=== PATIENT | male | born 1960 | race Caucasian/White ===

== ENCOUNTER 2021-05-20 10:14 | Outpatient (CLI) | payer OTHER, SELFPAY ==
--- NOTE | ~2021-05-20 | XR_ITS ---
XR foot LT min 3V DATE: 05/20/2021 10:37 INDICATION: None pressure chronic ulcer, plantar area TECHNIQUE: 3 views COMPARISON: 10/04/2016 left foot FINDINGS: Since 10/04/2016 the remainder of the left first metatarsal bone has been resected and there is interval amputation of third and fourth metatarsals at mid to distal shaft and amputation of the fifth digit just beyond the base of the proximal phalanx. There is prior amputation at the midshaft of the left second metatarsal bone. No erosive change or bone destruction is noted. Mild plantar calcaneal enthesopathy Prominent anterior and posterior tibial and subdural patellas pedis artery calcifications are noted. IMPRESSION: Status post amputation of second metatarsal midshaft Interval amputation of the remainder of the first metatarsal bone and amputation at the mid distal sh afts of the third and fourth metatarsal bones and amputation of the fifth digit just beyond the base of the proximal phalanx No radiographic evidence of osteomyelitis is noted Arterial calcifications Mild plantar calcaneal enthesopathy Reviewed, dictated and finalized at location A. IMPRESSION: Status post amputation of second metatarsal midshaft Interval amputation of the remainder of the first metatarsal bone and amputatio n at the mid distal shafts of the third and fourth metatarsal bones and amputat ion of the fifth digit just beyond the base of the proximal phalanx No radiographic evidence of osteomyelitis is noted Arterial calcifications Mild plantar calcaneal enthesopathy
== END 2021-05-20 10:15 | disposition home or self-care (01) ==
LOC: CHSIMG 10:17
PROVIDERS: PCP Family Medicine; Visit Provider Podiatrist Foot & Ankle Surgery
DX: L97.522 Non-pressure chronic ulcer of other part of left foot with fat layer exposed (principal)
CPT/HCPCS: 73630

== ENCOUNTER 2021-07-29 12:16 | Outpatient (CLI) | payer OTHER, SELFPAY ==
[2021-07-29 12:42] LABS: Creatinine Urine 67.75 mg/dL (40-278); Total Protein Urine Random 137.1 mg/dL (0.0-11.9); Ur Ttl Prot Creatinine Ratio 2.02 mg/mg (0-0.20)
[2021-07-29 13:20] LABS: Albumin Level 2.9 g/dL (3.4-5.0); Anion Gap 7 mmol/L (8-16); Blood Urea Nitrogen 23 mg/dL (7-18); Carbon Dioxide 27 mmol/L (21-32); Chloride 103 mmol/L (98-108); Estimated Glomerular Filt Rate > 60; Glucose 219 mg/dL (70-99); Osmolality Calculated 294 mOsm/kg (285-295); Phosphorus 4.2 mg/dL (2.6-4.7); Potassium 4.6 mmol/L (3.5-5.1); Sodium 137 mmol/L (136-145)
== END 2021-07-29 12:17 | disposition home or self-care (01) ==
PROVIDERS: PCP Family Medicine; Visit Provider Internal Medicine
DX: R80.9 Proteinuria, unspecified (principal); R31.29 Other microscopic hematuria
CPT/HCPCS: 36415; 80069; 82570; 84156

== ENCOUNTER 2022-04-05 17:18 | Outpatient (CLI) | payer OTHER, SELFPAY ==
[2022-04-05 18:51] LABS: Anion Gap 5 mmol/L (8-16); Blood Urea Nitrogen 21 mg/dL (7-18); Carbon Dioxide 29 mmol/L (21-32); Chloride 105 mmol/L (98-108); Estimated Glomerular Filt Rate > 60; Glucose 170 mg/dL (70-99); NT Pro B Type Natriuretic Pept 1199 pg/mL (0-125); Osmolality Calculated 295 mOsm/kg (285-295); Sodium 139 mmol/L (136-145)
== END 2022-04-05 17:19 | disposition home or self-care (01) ==
PROVIDERS: PCP Family Medicine
DX: M79.89 Other specified soft tissue disorders (principal); I10 Essential (primary) hypertension
CPT/HCPCS: 36415; 80048; 83880

== ENCOUNTER 2022-04-18 12:23 | Outpatient (CLI) | payer OTHER, SELFPAY ==
[2022-04-18 12:58] LABS: Anion Gap 5 mmol/L (8-16); Blood Urea Nitrogen 25 mg/dL (7-18); Calcium 8.9 mg/dL (8.5-10.1); Carbon Dioxide 30 mmol/L (21-32); Chloride 103 mmol/L (98-108); Estimated Glomerular Filt Rate > 60; Glucose 176 mg/dL (70-99); Osmolality Calculated 294 mOsm/kg (285-295); Potassium 4.6 mmol/L (3.5-5.1); Sodium 138 mmol/L (136-145)
== END 2022-04-18 12:24 | disposition home or self-care (01) ==
LOC: CHSLAB 12:27
PROVIDERS: PCP Family Medicine
DX: I10 Essential (primary) hypertension (principal); M79.89 Other specified soft tissue disorders
CPT/HCPCS: 36415; 80048

== ENCOUNTER 2022-05-09 14:33 | Outpatient (CLI) | payer OTHER, SELFPAY ==
[2022-05-09 15:15] LABS: Basophils Absolute Auto 0.08 K/mm3 (0.00-0.10); Basophils Percent Auto 1.1 % (0.0-1.0); Eosinophils Absolute Auto 0.45 K/mm3 (0.02-0.50); Eosinophils Percent Auto 5.9 % (1.0-6.0); Hematocrit 39.1 % (40.0-54.0); Hemoglobin 12.6 g/dL (14.0-18.0); Immature Granulocyte Absolute 0.04 K/mm3 (0.00-0.00); Immature Granulocyte Percent A 0.5 % (0.0-0.0); Lymphocytes Absolute Auto 1.12 K/mm3 (1.10-4.50); Lymphocytes Percent Auto 14.7 % (18.0-42.0); Mean Corpuscular HGB Conc 32.2 g/dL (32.0-36.0); Mean Corpuscular Hemoglobin 27.2 pg (27.0-31.0); Mean Corpuscular Volume 84.3 fL (78.0-102.0); Mean Platelet Volume 10.6 fl (8.7-11.0); Monocytes Absolute Auto 0.61 K/mm3 (0.10-0.90); Neutrophils Absolute Auto 5.3 K/mm3 (1.7-7.2); Neutrophils Percent Auto 69.8 % (50.0-70.0); Platelet Count Result 209 K/mm3 (150-420); Red Blood Count 4.64 M/mm3 (4.70-6.10); Red Cell Distribution Width 14.4 % (11.6-14.4); White Blood Count 7.6 K/mm3 (4.8-10.8)
[2022-05-09 15:59] LABS: Alanine Aminotransferase 35 U/L (16-63); Alkaline Phosphatase 101 U/L (46-116); Anion Gap 7 mmol/L (8-16); Aspartate Amino Transferase 21 U/L (15-37); Bilirubin,Total 0.3 mg/dL (0.00-1.00); Blood Urea Nitrogen 23 mg/dL (7-18); Calcium 9.2 mg/dL (8.5-10.1); Carbon Dioxide 29 mmol/L (21-32); Chloride 101 mmol/L (98-108); Estimated Glomerular Filt Rate > 60; Glucose 211 mg/dL (70-99); Osmolality Calculated 293 mOsm/kg (285-295); Potassium 4.3 mmol/L (3.5-5.1); Sodium 137 mmol/L (136-145); Total Protein 6.3 g/dL (6.4-8.2)
== END 2022-05-09 14:34 | disposition home or self-care (01) ==
LOC: CHSLAB 14:35
PROVIDERS: PCP Family Medicine; Visit Provider Internal Medicine Hematology & Oncology
DX: C22.0 Liver cell carcinoma (principal)
CPT/HCPCS: 36415; 80053; 85025

== ENCOUNTER 2022-07-25 14:56 | Outpatient (CLI) | payer OTHER, SELFPAY ==
[2022-07-25 15:19] LABS: Basophils Absolute Auto 0.06 K/mm3 (0.00-0.10); Basophils Percent Auto 0.8 % (0.0-1.0); Eosinophils Absolute Auto 0.39 K/mm3 (0.02-0.50); Eosinophils Percent Auto 5.5 % (1.0-6.0); Hematocrit 37.8 % (40.0-54.0); Hemoglobin 12.1 g/dL (14.0-18.0); Immature Granulocyte Absolute 0.03 K/mm3 (0.00-0.00); Immature Granulocyte Percent A 0.4 % (0.0-0.0); Lymphocytes Absolute Auto 1.14 K/mm3 (1.10-4.50); Lymphocytes Percent Auto 16.1 % (18.0-42.0); Mean Corpuscular Hemoglobin 27.2 pg (27.0-31.0); Mean Corpuscular Volume 84.9 fL (78.0-102.0); Mean Platelet Volume 10.2 fl (8.7-11.0); Monocytes Percent Auto 8.5 % (2.0-11.0); Neutrophils Absolute Auto 4.9 K/mm3 (1.7-7.2); Neutrophils Percent Auto 68.7 % (50.0-70.0); Platelet Count Result 191 K/mm3 (150-420); Red Blood Count 4.45 M/mm3 (4.70-6.10); Red Cell Distribution Width 14.6 % (11.6-14.4); White Blood Count 7.1 K/mm3 (4.8-10.8)
[2022-07-25 15:24] LABS: Creatinine Urine 154.34 mg/dL (40-278); Total Protein Urine Random 168.5 mg/dL (0.0-11.9); Ur Ttl Prot Creatinine Ratio 1.09 mg/mg (0-0.20)
[2022-07-25 16:03] LABS: Alanine Aminotransferase 32 U/L (16-63); Albumin Level 3.1 g/dL (3.4-5.0); Alkaline Phosphatase 93 U/L (46-116); Anion Gap 7 mmol/L (8-16); Aspartate Amino Transferase 18 U/L (15-37); Bilirubin,Total 0.3 mg/dL (0.00-1.00); Blood Urea Nitrogen 26 mg/dL (7-18); Calcium 8.7 mg/dL (8.5-10.1); Carbon Dioxide 27 mmol/L (21-32); Chloride 103 mmol/L (98-108); Estimated Glomerular Filt Rate > 60; Glucose 176 mg/dL (70-99); Osmolality Calculated 292 mOsm/kg (285-295); Phosphorus 4.4 mg/dL (2.6-4.7); Potassium 4.5 mmol/L (3.5-5.1); Sodium 137 mmol/L (136-145); Total Protein 6.2 g/dL (6.4-8.2)
== END 2022-07-25 14:57 | disposition home or self-care (01) ==
LOC: CHSLAB 15:05
PROVIDERS: PCP Family Medicine
DX: R80.9 Proteinuria, unspecified (principal); C22.0 Liver cell carcinoma
CPT/HCPCS: 36415; 80053; 82570; 83036; 84100; 84156; 85025

== ENCOUNTER 2022-10-24 08:17 | Outpatient (CLI) | payer OTHER, SELFPAY ==
[2022-10-24 08:38] LABS: Basophils Absolute Auto 0.06 K/mm3 (0.00-0.10); Basophils Percent Auto 0.9 % (0.0-1.0); Eosinophils Absolute Auto 0.33 K/mm3 (0.02-0.50); Hematocrit 37.4 % (40.0-54.0); Hemoglobin 12.2 g/dL (14.0-18.0); Immature Granulocyte Absolute 0.03 K/mm3 (0.00-0.00); Immature Granulocyte Percent A 0.5 % (0.0-0.0); Lymphocytes Absolute Auto 1.13 K/mm3 (1.10-4.50); Lymphocytes Percent Auto 17.3 % (18.0-42.0); Mean Corpuscular HGB Conc 32.6 g/dL (32.0-36.0); Mean Corpuscular Hemoglobin 28.4 pg (27.0-31.0); Mean Corpuscular Volume 87.2 fL (78.0-102.0); Mean Platelet Volume 10.4 fl (8.7-11.0); Monocytes Absolute Auto 0.62 K/mm3 (0.10-0.90); Monocytes Percent Auto 9.5 % (2.0-11.0); Neutrophils Absolute Auto 4.4 K/mm3 (1.7-7.2); Neutrophils Percent Auto 66.8 % (50.0-70.0); Platelet Count Result 192 K/mm3 (150-420); Red Blood Count 4.29 M/mm3 (4.70-6.10); Red Cell Distribution Width 14.6 % (11.6-14.4); White Blood Count 6.6 K/mm3 (4.8-10.8)
[2022-10-24 09:00] LABS: Alanine Aminotransferase 19 U/L (16-63); Albumin Level 3.2 g/dL (3.4-5.0); Alkaline Phosphatase 93 U/L (46-116); Anion Gap 4 mmol/L (8-16); Aspartate Amino Transferase 20 U/L (15-37); Bilirubin,Total 0.3 mg/dL (0.00-1.00); Blood Urea Nitrogen 22 mg/dL (7-18); Calcium 9.3 mg/dL (8.5-10.1); Carbon Dioxide 31 mmol/L (21-32); Chloride 104 mmol/L (98-108); Estimated Glomerular Filt Rate > 60; Glucose 88 mg/dL (70-99); Osmolality Calculated 290 mOsm/kg (285-295); Potassium 5.1 mmol/L (3.5-5.1); Sodium 139 mmol/L (136-145); Total Protein 6.5 g/dL (6.4-8.2)
[2022-10-24 10:45] LABS: Immature Reticulocyte Fraction 19.1 % (2.0-16.52); Reticulocyte Hemoglobin Conten 30.7 pg (28.0-35.0); Reticulocyte Percent 2.01 % (0.50-1.50); Reticulocytes Absolute 0.09 M/mm3 (0.02-0.1)
[2022-10-24 12:07] LABS: Ferritin 110 ng/mL (26-388); Iron 52 ug/dL (65-175); Percent Iron Saturation 19 % (12-57)
== END 2022-10-24 08:18 | disposition home or self-care (01) ==
LOC: CHSLAB 08:22
PROVIDERS: PCP Family Medicine; Visit Provider Internal Medicine Hematology & Oncology
DX: C22.0 Liver cell carcinoma (principal); D64.9 Anemia, unspecified
CPT/HCPCS: 36415; 80053; 82728; 83540; 83550; 85025; 85046

== ENCOUNTER 2023-01-23 11:04 | Outpatient (CLI) | payer OTHER, SELFPAY ==
[2023-01-23 11:46] LABS: Appearance Urine Clear (Clear); Bilirubin Urine Negative (Negative); Blood Urine Trace-Intact (Negative); Color Urine Yellow (Yellow); Glucose Urine UA 3+ (Negative); Ketones Urine Negative (Negative); Leukocyte Esterase Ur Negative (Negative); Nitrate Urine Negative (Negative); Protein Urine 2+ (Negative); Urobilinogen Urine 0.2 mg/dL (0.2-1.0)
[2023-01-23 11:53] LABS: Add Urine Microscopic? YES; Bacteria Urine Trace /hpf; RBC Urine 0-2 /hpf (0-2); Squamous Epithelial Cell Urine Few /hpf (Few); WBC Urine None seen /hpf (0-3)
[2023-01-23 11:59] LABS: Creatinine Urine 102.65 mg/dL (40-278); Total Protein Urine Random 95.5 mg/dL (0.0-11.9); Ur Ttl Prot Creatinine Ratio 0.93 mg/mg (0-0.20)
[2023-01-23 12:08] LABS: Albumin Level 3.1 g/dL (3.4-5.0); Anion Gap 6 mmol/L (8-16); Blood Urea Nitrogen 24 mg/dL (7-18); Calcium 8.7 mg/dL (8.5-10.1); Carbon Dioxide 30 mmol/L (21-32); Chloride 102 mmol/L (98-108); Estimated Glomerular Filt Rate > 60; Glucose 181 mg/dL (70-99); Osmolality Calculated 295 mOsm/kg (285-295); Phosphorus 4.6 mg/dL (2.6-4.7); Potassium 5.2 mmol/L (3.5-5.1); Sodium 138 mmol/L (136-145)
== END 2023-01-23 11:05 | disposition home or self-care (01) ==
LOC: CHSLAB 11:08
PROVIDERS: PCP Family Medicine; Visit Provider Internal Medicine
DX: N18.2 Chronic kidney disease, stage 2 (mild) (principal)
CPT/HCPCS: 36415; 80069; 81001; 82570; 84156

== ENCOUNTER 2023-03-25 11:33 | Outpatient (CLI) | payer OTHER, SELFPAY ==
[2023-03-25 12:44] LABS: Anion Gap 9 mmol/L (8-16); Blood Urea Nitrogen 26 mg/dL (7-18); Calcium 8.6 mg/dL (8.5-10.1); Carbon Dioxide 28 mmol/L (21-32); Chloride 104 mmol/L (98-108); Estimated Glomerular Filt Rate > 60; Glucose 150 mg/dL (70-99); Osmolality Calculated 299 mOsm/kg (285-295); Potassium 4.8 mmol/L (3.5-5.1); Sodium 141 mmol/L (136-145)
== END 2023-03-25 11:34 | disposition home or self-care (01) ==
LOC: CHSLAB 11:36
PROVIDERS: PCP Family Medicine
DX: N18.2 Chronic kidney disease, stage 2 (mild) (principal); R80.9 Proteinuria, unspecified
CPT/HCPCS: 36415; 80048

== ENCOUNTER 2023-12-21 11:11 | Outpatient (CLI) | payer OTHER, SELFPAY ==
[2023-12-21 11:40] LABS: Hematocrit 34.1 % (40.0-54.0); Hemoglobin 10.9 g/dL (14.0-18.0); Mean Corpuscular Hemoglobin 29.1 pg (27.0-31.0); Mean Corpuscular Volume 91.2 fL (78.0-102.0); Mean Platelet Volume 10.2 fl (8.7-11.0); Platelet Count Result 176 K/mm3 (150-420); Red Blood Count 3.74 M/mm3 (4.70-6.10); Red Cell Distribution Width 14.7 % (11.6-14.4); White Blood Count 6.6 K/mm3 (4.8-10.8)
[2023-12-21 11:44] LABS: Add Urine Microscopic? YES; Appearance Urine Clear (Clear); Bilirubin Urine Negative (Negative); Blood Urine Negative (Negative); Color Urine Light Yellow (Yellow); Glucose Urine UA 3+ (Negative); Ketones Urine Negative (Negative); Leukocyte Esterase Ur Negative (Negative); Nitrate Urine Negative (Negative); Protein Urine Trace (Negative); Specific Grav Ur 1.015 (1.010-1.020); Urobilinogen Urine 0.2 mg/dL (0.2-1.0)
[2023-12-21 12:02] LABS: RBC Urine None seen /hpf (0-2); Squamous Epithelial Cell Urine Rare /hpf (Few); Total Protein Urine Random 21.4 mg/dL (0.0-11.9); Ur Ttl Prot Creatinine Ratio 0.44 mg/mg (0-0.20); WBC Urine None seen /hpf (0-3)
[2023-12-21 12:03] LABS: Bacteria Urine Trace /hpf
[2023-12-21 12:29] LABS: Albumin Level 3.4 g/dL (3.4-5.0); Anion Gap 7 mmol/L (4-12); Blood Urea Nitrogen 25 mg/dL (7-18); Calcium 9.2 mg/dL (8.5-10.1); Carbon Dioxide 30 mmol/L (21-32); Chloride 103 mmol/L (98-108); Estimated Glomerular Filt Rate 58; Glucose 176 mg/dL (70-99); Osmolality Calculated 298 mOsm/kg (285-295); Phosphorus 4.5 mg/dL (2.6-4.7); Potassium 4.8 mmol/L (3.5-5.1); Sodium 140 mmol/L (136-145)
[2023-12-22 17:18] LABS: Parathyroid Intact 36 pg/mL (16-77)
== END 2023-12-21 11:12 | disposition home or self-care (01) ==
PROVIDERS: PCP Family Medicine
DX: N18.30 Chronic kidney disease, stage 3 unspecified (principal); I12.9 Hypertensive chronic kidney disease with stage 1 through stage 4 chronic kidney disease, or unspecified chronic kidney disease
CPT/HCPCS: 36415; 80069; 81001; 82570; 83970; 84156; 85027

== ENCOUNTER 2024-09-14 11:09 | Outpatient (CLI) | payer OTHER, SELFPAY ==
--- OUTSIDE RECORDS SUMMARY | 2024-09-14 11:37 | XMS_ITS ---
Author Organization Unknown Address [address] [address] [phone] Phone Care Team Providers Care Abrasive Mixer Name Role Phone LUCAS ALY Attending Unavailable TOBIN Velazquez Primary Unavailable Immunization Immunization Date Status Additional Notes Code Code System influenza, unspecified formulation 12/28/2017 Completed 88 CVX Influenza, split virus, trivalent, preservative 11/23/2016 Completed 141 CVX Influenza, split virus, trivalent, preservative 03/24/2012 Completed 141 CVX Influenza, split virus, quadrivalent, PF 04/21/2019 Completed 150 CVX Influenza, split virus, quadrivalent, preservative 12/07/2017 Completed 158 C VX COVID-19, mRNA, LNP-S, PF, 3 0 mcg/0.3 mL dose 09/24/2020 Completed 208 CVX COVID-19, mRNA, LNP-S, PF, 3 0 mcg/0.3 mL dose 10/16/2020 Completed 208 CVX COVID-19, mRNA, LNP-S, PF, 3 0 mcg/0.3 mL dose, volodymyr-sucrose 03/19/2021 Completed 217 CVX Results US ECHO W/COLOR W/CONTRAST - Completed: 09/11/2023 15:16 LOINC: See Scanned Image Attachment for Report Dictated By: Trans Initials: BG Trans Date: 09/15/23 10:30 <<REPDIST>> Social History Type Status Start Date End Date Code Code Syst em Smoking History Former smoker 4597019 SNOMED CT Sex Male Medications Medication Start Date End Date Route Frequency Dose Code Code System Medication Instructions Home Meds Folic Acid 1MG Oral Tablet 10/07/2017 Unknown ORAL ONCE A DAY 1 MILLIGRAMS 781523 RxNorm TAKE 1 MILLIGRAMS ORAL ONCE A DAY Latanoprost 0.005% Ophthalmic Solution 10/07/2017 Unknown BOTH EYES AT BEDTIME 1 DROP 502859 RxNorm INSTILL IN 1 DROP BOTH EYES AT BEDTIME Lisinopril 40MG Oral Tablet 10/07/2017 Unknown ORAL ONCE A DAY 40 MILLIGRAMS 023419 RxNorm TAKE 40 MILLIGRAMS ORAL ONCE A DAY Timolol Maleate 0.5% Ophthalmic Solution 10/07/2017 Unknown BOTH EYES EVERY 12 HOURS 1 DROP 0088638 RxNorm INSTILL IN 1 DROP BOTH EYES EVERY 12 HOURS Vitamin B1 100MG Oral Tablet 10/07/2017 Unknown ORAL ONCE A DAY 100 MILLIGRAMS 300962 RxNorm TAKE 100 MILLIGRAMS ORAL ONCE A DAY glipiZIDE 10MG Oral Tablet 10/07/2017 Unknown ORAL TWICE A DAY WITH MEALS 10 MILLIGRAMS 961321 RxNorm TAKE 10 MILLIGRAMS ORAL TWICE A DAY WITH MEALS Brimonidine Tartrate 0.2% Ophthalmic Solution 10/07/2017 Unknown BOTH EYES TWICE A DAY 1 DROP 580949 RxNorm INSTILL IN 1 DROP BOTH EYES TWICE A DAY hydroCHLORO thiazide 12.5MG Oral Tablet 10/07/2017 Unknown ORAL ONCE A DAY 12.5 MILLIGRAMS 834428 RxNorm TAKE 12.5 MILLIGRAMS ORAL ONCE A DAY metFORMIN HCl 1000MG Oral Tablet 10/07/2017 Unknown ORAL TWICE A DAY WITH MEALS 1000 MILLIGRAMS 761775 RxNorm TAKE 1000 MILLIGRAMS ORAL TWICE A DAY WITH MEALS Zetia 10MG Oral Tablet 10/05/2020 Unknown ORAL ONCE A DAY 10 MILLIGRAMS 852606 RxNorm TAKE 10 MILLIGRAMS ORAL ONCE A DAY Admelog SoloStar Pen 100U/1ML Injection Solution 10/05/2020 Unknown INJECTIO N BEFORE LARGEST MEAL 14 UNITS [id number] RxNorm 14 UNITS INJECTION BEFORE LARGEST MEAL Aspirin 81MG Oral Tablet, Chewable 10/05/2020 Unknown ORAL ONCE A DAY 81 MILLIGRAMS 826744 RxNorm TAKE 81 MILLIGRAMS ORAL ONCE A DAY Basaglar KwikPen 100U/1ML Subcutaneou s Solution 10/05/2020 Unknown SUBCUTAN EOUS DIRECTED 1 unit(s) 8093564 RxNorm INJECT INTO 1 EACH SUBCUTANEOUS DIRECTED Docusate Sodium 100MG Oral Capsule, Liquid Filled 10/05/2020 Unknown ORAL TWICE A DAY 100 MILLIGRAMS [id number] RxNorm TAKE 100 MILLIGRAMS ORAL TWICE A DAY Ferrous Sulfate 325MG Oral Tablet 10/05/2020 Unknown ORAL TWICE A DAY 325 MILLIGRAMS 861544 RxNorm TAKE 325 MILLIGRAMS ORAL TWICE A DAY Gabapentin 100MG Oral Capsule 10/05/2020 Unknown ORAL THREE TIMES A DAY 100 MILLIGRAMS 232976 RxNorm TAKE 100 MILLIGRAMS ORAL THREE TIMES A DAY Lipitor 80MG Oral Tablet 10/05/2020 Unknown ORAL ONCE A DAY 80 MILLIGRAMS 918565 RxNorm TAKE 80 MILLIGRAMS ORAL ONCE A DAY Metoprolol Tartrate 50MG Oral Tablet 10/05/2020 Unknown ORAL TWICE A DAY 50 MILLIGRAMS 972288 RxNorm TAKE 50 MILLIGRAMS ORAL TWICE A DAY HYDROCHLORO THIAZIDE 10/05/2020 Unknown ORAL ONCE A DAY 1 RxNorm TAKE 1 ORAL ONCE A DAY Assessment You had the following problems:ON EXAMINATION - LEFT DIABETIC FOOT - ULCERATEDCHRONIC KIDNEY DISEASE, STAGE 3 UNSPECIFIED Hospital Discharge Instructions Should you have any questions prior to discharge, please contact a member of your healthcare team. If you have left the hospital and have any questions, please contact your primary care physician. Reason For Referral No Data Found Problems Problem Start Date Resolved Date Status Code Code System ON EXAMINATION - LEFT DIABET IC FOOT - ULCERATED active 879369682 SNOMED-CT CHRONIC KIDNEY DISEASE, STAG E 3 UNSPECIFIED active 622872363 SNOMED-CT Allergies and Adverse Reactions Allergy Substance Reaction Severity Start Date Concern Status Co de Code System No Known Allergies Active [id number] SNO MED-CT Plan of Treatment US Echo With Color (07440) 05/29/2025 Encounters Encounter Diagnosis Start Date Code Code Sys tem Nonrheumatic aortic (valve) stenosis 09/11/2023 SNOMED-CT Personal Care Team Section
--- OUTSIDE RECORDS SUMMARY | 2024-09-14 11:37 | XMS_ITS | Clinical Summary ---
Author Organization [facility] Office Building [facility] Address [address] [place] [address] Care Team Providers Care Automation/Controls Manager Name Role Phone Zeeshan Bernabe MD Primary Care Provider Allergies No known active allergies Medications NORMAL SALINE FLUSH injection 8 Active brimonidine (ALPHAGAN) 0.2 % ophthalmic solution Administer 1 drop into the right eye 2 (two) times a day. 8 Active clopidogrel (PLAVIX) 75 mg tablet Take 75 mg by mouth daily. 8 Active folic acid (FOLVITE) 1 mg tablet Take 1 mg by mouth daily. Active gabapentin (NEURONTIN) 100 mg capsule Take 300 mg by mouth every 12 (twelve) hours. 8 Active glipiZIDE (GLUCOTROL) 10 mg tablet Take 10 mg by mouth 2 (two) times a day before breakfast and lunch. Active latanoprost (XALATAN) 0.005 % ophthalmic solution Administer 1 drop into the left eye nightly. 8 Active lisinopril (PRINIVIL,ZESTR IL) 40 mg tablet Take 40 mg by mouth daily. Active metFORMIN (GLUCOPHAGE) 1,000 mg tablet Take 1,000 mg by mouth 2 (two) times a day with meals. Active metoprolol (LOPRESSOR) 50 mg tablet Take 50 mg by mouth every 12 (twelve) hours. 8 Active BD ULTRA-FINE BOLIVAR PEN NEEDLE 32 gauge x 5/32 needle 8 Active timolol (TIMOPTIC) 0.5 % ophthalmic solution Administer 1 drop into the right eye every 12 (twelve) hours. 8 Active thiamine (vitamin B-1) 100 mg tablet Take 100 mg by mouth daily. Active ONETOUCH ULTRA BLUE TEST STRIP strip 8 Active hydroCHLOROthia zide (HYDRODIURIL) 12.5 mg tablet 25 mg daily. 8 Active BASAGLAR KWIKPEN U-100 INSULIN 100 unit/mL (3 mL) insulin pen Inject 80 Units under the skin nightly. 8 Active ONETOUCH DELICA LANCETS 33 gauge misc 8 Active rosuvastatin (CRESTOR) 40 mg tablet Take 40 mg by mouth daily. Active Active Problems Problem Noted Date Diagnosed Date Osteomyelitis of left foot 01/26/2018 Assessment & Plan (01/26/2018 6:46 AM TILE SHADER): Found on outpatient MRI. Patient advised to have girlfriend bring in result of the MRI. Id has been consulted. Id had recommended vancomycin. Awaiting ID recommendations. Vancomycin has been continued. Type 2 diabetes mellitus wit h neurologic complication, with long-term current use of insulin 01/26/2018 Assessment & Plan (01/26/2018 6:45 AM TILE SHADER): Patient is on 80 units of Lantus q.h.s., metformin and glipizide at home. Will reduce dose to [address] patient on high-dose sliding scale. Continue to monitor and adjust medications as needed. Essential hypertension 01/26/2018 Assessment & Plan (01/26/2018 6:46 AM TILE SHADER): Slightly elevated. Home medications have been resumed with hold parameters. DC IV fluids. Continue monitor and adjust medications as needed. Microcytic anemia 01/26/2018 Assessment & Plan (01/26/2018 6:46 AM TILE SHADER): Hemoglobin appears to be baseline. However patient never had microcytosis. Could be of chronic disease however will rule out iron deficiency. Will check an iron profile. Will also rule out occult bleeding with FOBT. PVD (peripheral vascular disease) 01/26/2018 Assessment & Plan (01/26/2018 6:45 AM TILE SHADER): Patient has a history of PVD status post stents. Continue aspirin and statin. H/O amputation of lesser toe, left 07/23/2017 Chronic alcohol use Immunizations Immunization Administration Dates Next Due Influenza, Unspecified 12/28/2017 Surgical History Surgery Date Site/Laterality Comments OTHER SURGICAL HISTORY 06/22/2017 Left Stent Placement mid left superficial femoral artery & left popliteal artery OTHER SURGICAL HISTORY 06/30/2017 Left Amputation of Left Middle Toe Medical History Medical History Date Comments PVD (peripheral vascular disease) 2018 Diabetes mellitus (HCC) Hypertension Family History Medical History Relation Name Comments Cancer Father Melanoma Father Relation Name Status Comments Father Mother Alive Social History Tobacco Use Types Packs/Day Years Used Date Smoking Tobacco: Former Cigarettes Q uit: 2013 Smokeless Tobacco: Never Alcohol Use Standard Drinks/Week Comments No 0 (1 standard drink = 0.6 oz pur e alcohol) quite drinking 2015 Sex and Gender Information Value Date Recorded Sex Assigned at Not on file Legal Sex Male 12:22 PM CDT Gender Identity Not on file Sexual Orientation Not on file Obstetrics History Last Filed Vital Signs Vital Sign Reading Time Taken Comments Blood Pressure 150/76 01/28/2018 10:50 AM TILE SHADER Pulse 78 01/28/2018 10:50 AM TILE SHADER Temperature 36.3 C (97.3 F) 01/28/2018 9:50 AM TILE SHADER Respiratory Rate 18 01/28/2018 10:50 AM TILE SHADER Oxygen Saturation 97% 01/28/2018 10:50 AM TILE SHADER Inhaled Oxygen Concentration - - Weight 105.8 kg (233 lb 4 oz) 01/28/2018 7:59 AM TILE SHADER Height 170.2 cm (5' 7) 01/28/2018 7:59 AM TILE SHADER Body Mass Index 36.53 01/28/2018 7:59 AM TILE SHADER Plan of Treatment Health Maintenance Due Date Last Done Comments Albumin Creatinine Ratio, Urine 1962 Colon Cancer Screening-Colonoscopy 1962 Depression Screening 1962 Hemoglobin A1C 1962 Hepatitis C Screening 1962 Prostate Cancer Screening-PSA 1962 Dilated Eye Exam 1962 Foot Exam 1962 Lipid Panel 1962 DTaP/Tdap/Td Vaccine (1 - Tdap) 1973 Hepatitis B Screening 1980 Regular Well Visit/Exam 18-64 1980 Pneumococcal vaccine <65 (1 of 2 - PCV) 1981 Zoster Vaccine (1 of 2) 2012 eGFR 01/27/2019 01/27/2018, 05/2017, 01/25/2018 Covid-19 Vaccine (4 - 2023-2 5 season) 2023 03/19/2021, 10/16/2020, 09/24/2020 Influenza Vaccine (Season Ended) 2024 04/21/2019, 12/28/2017, 12/07/2017, Additional history exists Procedures Procedure Name Priority Date/Time Associated Diagnosis Comments EGFR Routine 01/27/2018 3:26 AM TILE SHADER from Last 3 Months or Most Recently Relevant to Health Maintenance Results * eGFR (01/27/2018 3:26 AM TILE SHADER) eGFR >60 mL/min/1.7 3 m2 ISABEL JOHNSON ([place]) Comment: Interpretive Data Reference Interval Normal >/= 90 mL/min/1.73m2 Mildly decreased* 60 - 89 mL/min/1.73m2 Mildly to moderately decreased 45 - 59 mL/min/1.73m2 Moderately to severely decreased 30 - 44 mL/min/1.73m2 Severely decreased 15 - 29 mL/min/1.73m2 Kidney Failure < 15 mL/min/1.73m2 *Relative to young adult level If -[place] multiply value by 1.16. Estimated glomerular filtration rate is determined by the CKD-EPI equation recommended by the National Kidney Foundation (KDIGO 2012 Clinical Practice Guideline for the Evaluation and Management of Chronic Kidney Disease. Kidney Intnl Suppl Feb 2012;3:1). The CKD-EPI equation should not be used for patients with unstable renal function and has not been validated in children and those over 70. Current interpretive data was last reviewed 2015. Blood specimen (specimen) 01/27/2018 3:26 AM TILE SHADER 01/27/2018 4:27 AM TILE SHADER Narrative ISABEL JOHNSON ([place]) - 01/27/2018 4:54 AM TILE SHADER Nicci Edwards MD LAB BLOOD ORDERABLES Final Resul t [facility] [address] [facility] Department [place] [address] from Last 3 Months or Most Recently Relevant to Health Maintenance Insurance [facility], [facility] MEDICAID [facility] IDPA Advance Directives For more information, please contact: [phone] * Full Code (Latest Code Status on File) Date Activated Date Inactivated Comments 01/25/2018 10:06 PM 01/28/2018 5:50 PM Care Teams Automation/Controls Manager Relationship Specialty Start Date End Date Zeeshan Bernabe MD PCP - General 10/12/17
--- OUTSIDE RECORDS SUMMARY | 2024-09-14 11:37 | XMS_ITS | Referral Summary ---
Author Organization [facility] Building [facility] Address [address] [place] [address] Care Team Providers Care Marketing Outreach Coordinator Name Role Phone Zeeshan Bernabe MD Primary Care Provider [phone] Allergies No known active allergies Medications NORMAL [...] 01/26/2018 Assessment & Plan (01/26/2018 6:46 AM ALLIGATOR SHEAR OPERATOR): Found on outpatient MRI. Patient advised to have girlfriend bring in result of the MRI. Id has been consulted. Id had recommended vancomycin. Awaiting ID recommendations. Vancomycin has been continued. Type 2 diabetes mellitus wit h neurologic complication, with long-term current use of insulin 01/26/2018 Assessment & Plan (01/26/2018 6:45 AM ALLIGATOR SHEAR OPERATOR): Patient is on 80 units of Lantus q.h.s., metformin and glipizide at home. Will reduce dose to [address] patient on high-dose sliding scale. Continue to monitor and adjust medications as needed. Essential hypertension 01/26/2018 Assessment & Plan (01/26/2018 6:46 AM ALLIGATOR SHEAR OPERATOR): Slightly elevated. Home medications have been resumed with hold parameters. DC IV fluids. Continue monitor and adjust medications as needed. Microcytic anemia 01/26/2018 Assessment & Plan (01/26/2018 6:46 AM ALLIGATOR SHEAR OPERATOR): Hemoglobin appears to be baseline. However patient never had microcytosis. Could be of chronic disease however will rule out iron deficiency. Will check an iron profile. Will also rule out occult bleeding with FOBT. PVD (peripheral vascular disease) 01/26/2018 Assessment & Plan (01/26/2018 6:45 AM ALLIGATOR SHEAR OPERATOR): Patient has a history of PVD status post stents. Continue aspirin and statin. H/O amputation of lesser toe, left 07/23/2017 Chronic alcohol use Immunizations Immunization Administration Dates Next Due Influenza, Unspecified 12/28/2017 Social History Tobacco Use Types Packs/Day Years [...] on file Sexual Orientation Not on file Last Filed Vital Signs Vital Sign Reading Time Taken Comments Blood Pressure 150/76 01/28/2018 10:50 AM ALLIGATOR SHEAR OPERATOR Pulse 78 01/28/2018 10:50 AM ALLIGATOR SHEAR OPERATOR Temperature 36.3 C (97.3 F) 01/28/2018 9:50 AM ALLIGATOR SHEAR OPERATOR Respiratory Rate 18 01/28/2018 10:50 AM ALLIGATOR SHEAR OPERATOR Oxygen Saturation 97% 01/28/2018 10:50 AM ALLIGATOR SHEAR OPERATOR Inhaled Oxygen Concentration - - Weight 105.8 kg (233 lb 4 oz) 01/28/2018 7:59 AM ALLIGATOR SHEAR OPERATOR Height 170.2 cm (5' 7) 01/28/2018 7:59 AM ALLIGATOR SHEAR OPERATOR Body Mass Index 36.53 01/28/2018 7:59 AM ALLIGATOR SHEAR OPERATOR Plan of Treatment Not on file Procedures Procedure Name Priority Date/Time Associated Diagnosis Comments EGFR Routine 01/27/2018 3:26 AM ALLIGATOR SHEAR OPERATOR from Last 3 Months or Most Recently Relevant to Health Maintenance Results * eGFR (01/27/2018 3:26 AM ALLIGATOR SHEAR OPERATOR) eGFR >60 mL/min/1.7 3 m2 ISABEL JOHNSON ([place]) Comment: Interpretive Data Reference Interval Normal >/= 90 mL/min/1.73m2 Mildly decreased* 60 - 89 mL/min/1.73m2 Mildly to moderately decreased 45 - 59 mL/min/1.73m2 Moderately to severely decreased 30 - 44 mL/min/1.73m2 Severely decreased 15 - 29 mL/min/1.73m2 Kidney Failure < 15 mL/min/1.73m2 *Relative to young adult level If -[place] multiply value by 1.16. Estimated glomerular filtration [...] 2015. Blood specimen (specimen) 01/27/2018 3:26 AM ALLIGATOR SHEAR OPERATOR 01/27/2018 4:27 AM ALLIGATOR SHEAR OPERATOR Narrative ISABEL JOHNSON ([place]) - 01/27/2018 4:54 AM ALLIGATOR SHEAR OPERATOR us Nicci Edwards MD LAB BLOOD ORDERABLES Final Resul t [facility]EL JOHNSON ([place]) 1 [facility] Department [place] [address] from Last 3 Months or Most Recently Relevant to Health Maintenance Insurance [facility] MEDICAID [facility] IDPA Advance Directives For more information, please contact: [phone] * Full Code (Latest Code Status on File) Date Activated Date Inactivated Comments 01/25/2018 10:06 PM 01/28/2018 5:50 PM Care Teams Marketing Outreach Coordinator Relationship Specialty Start Date End Date Zeeshan Bernabe MD PCP - General 10/12/17
--- OUTSIDE RECORDS SUMMARY | 2024-09-14 11:37 | XMS_ITS | Patient Health Record ---
Author Organization [facility] Address [address] [place], [place] [address] Care Team Providers Care Pilates Coordinator Name Role Phone Zeeshan Bernabe Unavailable Unavailable JEFFERSON FRANCISCO Unavailable [phone] Allergies No Known Allergies Reason For Referral No Information Medications Medication SIG (Take, Route, Frequency, Duration) Notes Start Date End Date Status Valsartan 320 MG 1 tablet Orally Once a day Active Metoprolol Tartrate 50 MG 1 tablet with food Orally Twice a day Active Atorvastatin Calcium 80 MG 1 tablet Orally Once a day Active Aspirin 81 81 MG 1 tablet Orally Once a day Active Latanoprost 0.005 % 1 drop into affected eye in the evening Ophthalmic Once a day Active metFORMIN HCl 1000 MG 1 tablet with a me al Orally Once a day Active Folic Acid 1 MG 1 tablet Orally Once a day Active Ferrous Sulfate 325 (65 Fe) MG 1 tablet Orally Three times a Week Active Ezetimibe 10 MG 1 tablet Orally Once a day Active amLODIPine Besylate 10 MG 1 tablet Orally Once a day Active Brimonidine Tartrate 0.2 % 1 drop into a ffected eye Ophthalmic every 8 hrs Active Isosorbide Mononitrate 20 MG 1 tablet Orally Twice a day Active Farxiga 10 MG 1 tablet Orally Once a day Active Insulin Glargine 100 UNIT/ML as directed Subcutaneous Act lazaro Ophthalmic Irrigation Solution - as directed Ophthalmic Activ e Plan Of Treatment No Information Medical (General) History Medical History History ICD Code neuropathy Open Sores Arthritis Diabetic hypertension peripheral vascular disease
--- OUTSIDE RECORDS SUMMARY | 2024-09-14 11:37 | XMS_ITS | Clinical Summary ---
Author Organization [facility] Address [address] [place] [address] Phone Care Team Providers Care Commercial Engineer Name Role Phone Provider, None Primary Care Provider Unavailabl e Allergies No known active allergies Medications metFORMIN (GLUCOPHAGE) 1000 MG Tablet Take 1,000 mg by mouth 2 times daily (with meals). Active glipiZIDE (GLUCOTROL) 10 MG Tablet Take 10 mg by mouth 2 times daily. Active metoprolol tartrate (LOPRESSOR) 50 MG Tablet Take 50 mg by mouth 2 times daily. Active folic acid (FOLVITE) 1 MG Tablet Take 1 mg by mouth daily. Active lisinopril (PRINIVIL, ZESTRIL) 40 MG Tablet Take 40 mg by mouth daily. Active Vitamin B-1 (THIAMINE) 100 MG Tablet Take 1 Tab by mouth daily. Active latanoprost (XALATAN) 0.005 % Solution Place 1 Drop in affected eye(s) nightly. Active TIMOLOL MALEATE OP Place 1 Drop in affected eye(s) 2 times daily. Active insulin glargine (LANTUS) 100 UNIT/ML Solution 55 Units by Subcutaneous route nightly. Active simvastatin (ZOCOR) 10 MG Tablet Take 10 mg by mouth every morning. Active brimonidine (ALPHAGAN) 0.15 % Solution Place 1 Drop in affected eye(s) 2 times daily. Active HYDROcodone-antwon taminophen (NORCO) 5-325 MG Tablet Take 1-2 Tabs by mouth every 6 hours as needed for Moderate pain (4-6) or more severe pain if patient requests. 30 Tab 8 Active aspirin 81 MG Chewable Tablet Take 1 Tab by mouth daily. 100 Tab 8 Active clopidogrel (PLAVIX) 75 MG Tablet Take 1 Tab by mouth daily. 90 Tab 8 Active Active Problems Problem Noted Date Diagnosed Date Peripheral vascular disease due to secondary kaden betes 06/25/2017 Acute osteomyelitis of left foot 06/25/2017 Hypertension 06/25/2017 Diabetic foot infection 06/22/2017 Type 2 diabetes mellitus wit h foot ulcer, with long-term current use of insulin 06/22/2017 Resolved Problems Problem Noted Date Diagnosed Date Resolved Date Hyponatremia 06/25/2017 06/27/2017 Social History Tobacco Use Types Packs/Day Years Used Date Smoking Tobacco: Former Smokeless Tobacco: Current Chew Alcohol Use Standard Drinks/Week Comments No 0 (1 standard drink = 0.6 oz pur e alcohol) Sex and Gender Information Value Date Recorded Sex Assigned at Not on file Legal Sex Male 6:36 PM CDT Gender Identity Not on file Sexual Orientation Not on file Last Filed Vital Signs Vital Sign Reading Time Taken Comments Blood Pressure 161/85 07/04/2017 3:00 PM CDT Pulse 70 07/04/2017 3:00 PM CDT Temperature 36.5 C (97.7 F) 07/04/2017 7:24 AM CDT Respiratory Rate 16 07/04/2017 3:00 PM CDT Oxygen Saturation 95% 07/04/2017 7:50 AM CDT Inhaled Oxygen Concentration - - Weight 99.8 kg (220 lb) 06/22/2017 6:57 PM CDT Height 172.7 cm (5' 8) 06/22/2017 6:57 PM CDT Body Mass Index 33.45 06/22/2017 6:57 PM CDT Plan of Treatment Health Maintenance Due Date Last Done Comments Diabetes: Eye Exam 1960 Diabetes: Foot Exam 1960 Hepatitis C Virus (HCV) Screening 1960 TdaP Immunization 1960 Pneumococcal Immunization (5 0+ years) (1 of 2 - PCV) 1981 Cologuard 07/21/2007 Colonoscopy 07/21/2007 Colorectal Cancer Screening 07/21/2007 Immunochemical Fecal Occult Blood 07/21/2007 Zoster Immunization (1 of 2) 2012 Diabetes: Hemoglobin A1c 12/22/2017 06/22/2017 Diabetes: Nephropathy Screening 06/22/2018 06/22/2017 Respiratory Syncytial Virus (RSV) Immunization (Adult) (1 - Risk 60-74 years 1-dose series) 2022 SARS-COV-2 Immunization ( season) 2023 10/16/2020, 09/24/2020 Influenza Immunization (#1) 2024 03/24/2012 Hepatitis B Immunization Aged Out No longer eligible based on patient's age to complete this topic Human Papillomavirus (HPV) Immunization Aged Out No longer eligible b ased on patient's age to complete this topic Meningococcal Immunization (ACWY) Aged Out No longer eligible b ased on patient's age to complete this topic Rotavirus Immunization Aged Out No lo nger eligible based on patient's age to complete this topic Medical Devices Implanted Type Area Imposer Device Identifier Shelf Expiration Date Model / Serial / Lot Stent Vasc 60mm 5mm 6fr Supera Soila 120cm - [id number] Implanted:Qty: 1 on 06/26/2017 by Daniel Clark MD at [facility] IMPLANT Left: [employer] 11/22/2018 [id number]-[id number] 120-P6 / [id number] 120-P6 / [id number] Stent Vasc 40mm 6mm 6fr Supera Soila 120cm - [id number] Implanted:Qty: 1 on 06/26/2017 by Daniel Clark MD at [facility] IMPLANT Left: [employer] 09/22/2018 S-[id number] 120-P6 / [id number] 120-P6 / [id number] Device Clsr 70cm 6fr Angio-Seal Vip .035in Vasc Collagen Valuelink Gw Insertion Shth J Fence Gate Assembler - [id number] Implanted:Qty: 1 on 06/26/2017 by Daniel Clark MD at [facility] IMPLANT Right: Groin [employer] 02/22/2018 [id number] / / [id number] Procedures Procedure Name Priority Date/Time Associated Diagnosis Comments CMP (COMPREHENSIVE METABOLIC PANEL) STAT 06/22/2017 7:21 PM CDT HEMOGLOBIN A1C W/ ESTIMATED GLUCOSE STAT 06/22/2017 7:21 PM CDT from Last 3 Months or Most Recently Relevant to Health Maintenance Results * (ABNORMAL) Hemoglobin A1C (if indicated) (06/22/2017 7:21 PM CDT) [facility] HGB-A1C 9.9(H) 4.4 - 6.4 % 06/22/2017 11:17 PM CDT [facility] Est Average Glucose 237.4 mg/dL 06/22/2017 11:17 PM CDT [facility] Blood specimen (specimen) Venipuncture / Unknown 06/22/2017 7:21 PM CDT 06/22/2017 11:02 PM CDT Narrative [facility] - 06/22/2017 11:17 PM CDT HEMOGLOBIN A1C: DIABETIC PATIENTS: WELL-CONTROLLED: 6.2 - 7.0 INTERMEDIATE WELL-CONTROLLED: 7.0 - 9.0 POORLY-CONTROLLED: >9.0 us Lucero Tanner MD CHEMISTRY ORDERABLES Final Result [facility] [address] [place] [address] * (ABNORMAL) CMP (Comprehensive Metabolic Panel) (06/22/2017 7:21 PM CDT) [facility] SODIUM 129(L) 131 - 143 mmol/L 06/22/2017 7:51 PM CDT [facility] POTASSIUM 4.3 3.5 - 5.1 mmol/L 06/22/2017 7:51 PM CDT [facility] CHLORIDE 90(L) 100 - 110 mmol/L 06/22/2017 7:51 PM CDT [facility] CO2, VENOUS 28 22 - 32 mmol/L 06/22/2017 7:51 PM CDT [facility] ANION GAP 15.3 8.0 - 20.0 mmol/L 06/22/2017 7:51 PM CDT [facility] GLUCOSE 279(H) 70 - 105 mg/dL 06/22/2017 7:51 PM CDT [facility] BUN 18 10 - 31 mg/dL 06/22/2017 7:51 PM T [facility] CREATININE, BLOOD 0.87 0.60 - 1.30 mg/dL 06/22/2017 7:51 PM T [facility] BUN/CREATININE RATIO 21(H) 12 - 20 ratio 06/22/2017 7:51 PM T [facility] TOTAL PROTEIN 6.9 6.0 - 8.3 g/dL 06/22/2017 7:51 PM T [facility] ALBUMIN 3.4(L) 3.5 - 5.2 g/dL 06/22/2017 7:51 PM [facility] A/G RATIO 1.0 1.0 - 2.0 06/22/2017 7:51 PM T [facility] CALCIUM 9.1 8.9 - 10.3 mg/dL 06/22/2017 7:51 PM T [facility] T BILI 0.2(L) 0.3 - 1.2 mg/dL 06/22/2017 7:51 PM T [facility] SGOT (AST) 13 1 - 40 U/L 06/22/2017 7:51 PM [facility] SGPT (ALT) 17 1 - 40 U/L 06/22/2017 7:51 PM [facility] ALKALINE PHOSPHATASE 67 40 - 130 U/L 06/22/2017 7:51 PM T [facility] GFR, EST. NONAFRICAN >60 >=60 06/22/2017 7:51 PM T [facility] GFR, EST. >60 >=60 06/22/2017 7:51 PM [facility] Comment: Creatinine Clearance is the preferred criteria for selecting drug dose adjustments in renally impaired patients. The GFR is provided as additional pertinent clinical information. GFR is reported in mL/min/1.73 sq m. Blood specimen (specimen) Venipuncture / Unknown 06/22/2017 7:21 PM CDT 06/22/2017 7:27 PM CDT us Pablo Huertas MD CHEMISTRY ORDERABLES Final Result [facility] [address] [place] [address] from Last 3 Months or Most Recently Relevant to Health Maintenance Advance Directives * Full Code (Latest Code Status on File) Date Activated Date Inactivated Comments 06/23/2017 1:12 AM 07/04/2017 10:09 PM CPR-Full German atment: FULL ARREST: Attempt Resuscitation/CPR wit intubation and mechanical ventilation. PRE-ARREST: Use entire range of life support measures to stabilize the patient. Care Teams Commercial Engineer Relationship Specialty Start Date End Date Provider, None ATA PCP - General 06/22/17
--- OUTSIDE RECORDS SUMMARY | 2024-09-14 11:38 | XMS_ITS ---
Author Organization Unknown Address [address] [place] [phone] Phone Care Team Providers Care Dry Cleaning Supervisor Name Role Phone SYLVIA Howell Attending Unavailable TOBIN Velazquez Primary Unavailable Immunization [...] dose, volodymyr-sucrose 03/19/2021 Completed 217 CVX Results BUN/CREAT - Collect Date/Alber e: 01/08/2023 08:35 [facility] ID: [id number] [address] [place], [place], [id number] LOINC: 3097-3 Test Value Unit Reference Range Code Code System Flag BUN 23 mg/dL L=7 H=20 3094-0 LOINC H CREATININE 1.00 mg/dL L=0.66 H=1.25 2160-0 LOINC AGE 62 47[address]-0 LOINC eGFR NON-AFR 81 ml/min eGFR AFR AMER 98 ml/min MRI ABDOMEN W+WO CONTRAST - Completed: 01/08/2023 08:41 LOINC: EXAM DESCRIPTION: MRI ABDOMEN W+WO CONTRAST REASON FOR STUDY: History of hepatic segment 6 lesion status post ablation for 1 year follow-up. Carcinoid tumor Duration: 1-year post-treatment follow-up. Previous Surgery: ABLATED SEGMENT HEPATIC CARCINOID TUMOR, c.1 YEAR AGO. Cancer History: Type: HEPATIC CARCINOMA, c. 1 YR AGO. Cancer History: Treatment: ABLATION, ONLY, WITH NO F/U RADIATION OR CHEMOTHERAPY. TECHNIQUE: MRI of the abdomen performed without and with intravenous contrast according to the liver protocol. All images stored on PACS. CONTRAST TYPE/DOSE: 15 mL of ProHance injected via left antecubital fossa vein COMPARISON: MRI dated October 13, 2022 REFERENCE: Per ACR white paper recommendations, unless otherwise specified no follow-up imaging is recommended for incidental renal and adrenal lesions per consensus recommendations based on imaging criteria. Further lab evaluation could be pursued based on clinical findings. FINDINGS: LOWER CHEST: No effusion. LIVER: The liver is normal in size. Involving hepatic segment 6 is a lesion. This appears T2 hypointense. No microscopic or macroscopic fat. No restricted diffusion. On precontrast T1 fat saturated sequences appears intrinsically hyperintense. On postcontrast imaging there is no evidence of solid or nodular enhancement as confirmed on subtraction images. This measures a maximum of 3.1 x 2.3 cm (series [id number], image 42; previously 3.3 x 2.5 cm remeasured). This is compatible with satisfactory response to therapy. No new hepatic lesion is seen. GALLBLADDER: No stones, wall thickening or pericholecystic fluid. BILE DUCTS: No intrahepatic or extrahepatic ductal dilatation. SPLEEN: Normal size. No focal lesions. PANCREAS: No masses. No adjacent inflammation or peripancreatic fluid collections. Pancreatic duct not dilated ADRENALS: Normal. KIDNEYS/URINARY TRACT: No solid masses. Scattered cysts. No hydronephrosis or hydroureter. Symmetric enhancement. GI: No visualized abnormality. PERITONEUM: No ascites. RETROPERITONEUM: No mass or adenopathy. VASCULATURE: No abdominal aortic aneurysm. MUSCULOSKELETAL: No acute findings. OTHER: No other abnormality. IMPRESSION: ? ? Hepatic segment 6 lesion measuring 3.1 x 2.3 cm, previously 3.3 x 2.5 cm compatible with satisfactory response to therapy. No new hepatic lesion is seen. THIS IS AN ELECTRONICALLY VERIFIED FINAL REPORT 01/08/2023 11:12 AM - Electronically signed by Jeremie Belle M.D. JA: LEN Report ID: [id number] Reading Location: [id number] Social History Type Status Start Date End Date Code Code Syst em Smoking History Former smoker 0326213 SNOMED CT Sex Male Medications Medication Start Date End Date Route Frequency Dose Code Code System Medication Instructions Home Meds Folic Acid 1MG Oral Tablet 10/07/2017 Unknown ORAL ONCE A DAY 1 MILLIGRAMS 387354 RxNorm TAKE 1 MILLIGRAMS ORAL ONCE A DAY Latanoprost 0.005% Ophthalmic Solution 10/07/2017 Unknown BOTH EYES AT BEDTIME 1 DROP 996829 RxNorm INSTILL IN 1 DROP BOTH EYES AT BEDTIME Lisinopril 40MG Oral Tablet 10/07/2017 Unknown ORAL ONCE A DAY 40 MILLIGRAMS 383490 RxNorm TAKE 40 MILLIGRAMS ORAL ONCE A DAY Timolol Maleate 0.5% Ophthalmic Solution 10/07/2017 Unknown BOTH EYES EVERY 12 HOURS 1 DROP 0663878 RxNorm INSTILL IN 1 DROP BOTH EYES EVERY 12 HOURS Vitamin B1 100MG Oral Tablet 10/07/2017 Unknown ORAL ONCE A DAY 100 MILLIGRAMS 157787 RxNorm TAKE 100 MILLIGRAMS ORAL ONCE A DAY glipiZIDE 10MG Oral Tablet 10/07/2017 Unknown ORAL TWICE A DAY WITH MEALS 10 MILLIGRAMS 309920 RxNorm TAKE 10 MILLIGRAMS ORAL TWICE A DAY WITH MEALS Brimonidine Tartrate 0.2% Ophthalmic Solution 10/07/2017 Unknown BOTH EYES TWICE A DAY 1 DROP 707192 RxNorm INSTILL IN 1 DROP BOTH EYES TWICE A DAY hydroCHLORO thiazide 12.5MG Oral Tablet 10/07/2017 Unknown ORAL ONCE A DAY 12.5 MILLIGRAMS 794054 RxNorm TAKE 12.5 MILLIGRAMS ORAL ONCE A DAY metFORMIN HCl 1000MG Oral Tablet 10/07/2017 Unknown ORAL TWICE A DAY WITH MEALS 1000 MILLIGRAMS 071254 RxNorm TAKE 1000 MILLIGRAMS ORAL TWICE A DAY WITH MEALS Zetia 10MG Oral Tablet 10/05/2020 Unknown ORAL ONCE A DAY 10 MILLIGRAMS 338189 RxNorm TAKE 10 MILLIGRAMS ORAL ONCE A DAY Admelog SoloStar Pen 100U/1ML Injection Solution 10/05/2020 Unknown INJECTIO N BEFORE LARGEST MEAL 14 UNITS 5239748 RxNorm 14 UNITS INJECTION BEFORE LARGEST MEAL Aspirin 81MG Oral Tablet, Chewable 10/05/2020 Unknown ORAL ONCE A DAY 81 MILLIGRAMS 411781 RxNorm TAKE 81 MILLIGRAMS ORAL ONCE A DAY Basaglar KwikPen 100U/1ML Subcutaneou s Solution 10/05/2020 Unknown SUBCUTAN EOUS DIRECTED 1 unit(s) 7188367 RxNorm INJECT INTO 1 EACH SUBCUTANEOUS DIRECTED Docusate Sodium 100MG Oral Capsule, Liquid Filled 10/05/2020 Unknown ORAL TWICE A DAY 100 MILLIGRAMS 8444008 RxNorm TAKE 100 MILLIGRAMS ORAL TWICE A DAY Ferrous Sulfate 325MG Oral Tablet 10/05/2020 Unknown ORAL TWICE A DAY 325 MILLIGRAMS 399703 RxNorm TAKE 325 MILLIGRAMS ORAL TWICE A DAY Gabapentin 100MG Oral Capsule 10/05/2020 Unknown ORAL THREE TIMES A DAY 100 MILLIGRAMS 215069 RxNorm TAKE 100 MILLIGRAMS ORAL THREE TIMES A DAY Lipitor 80MG Oral Tablet 10/05/2020 Unknown ORAL ONCE A DAY 80 MILLIGRAMS 356744 RxNorm TAKE 80 MILLIGRAMS ORAL ONCE A DAY Metoprolol Tartrate 50MG Oral Tablet 10/05/2020 Unknown ORAL TWICE A DAY 50 MILLIGRAMS 683473 RxNorm TAKE 50 MILLIGRAMS ORAL TWICE A [...] LEFT DIABET IC FOOT - ULCERATED active [id number] SNOMED-CT CHRONIC KIDNEY DISEASE, STAG E 3 UNSPECIFIED active 812594941 SNOMED-CT Allergies and Adverse Reactions Allergy Substance Reaction Severity Start Date Concern Status Co de Code System No Known Allergies Active [id number] SNO MED-CT Plan of Treatment US Echo With Color (01579) 05/29/2025 Encounters Encounter Diagnosis Start Date Code Code Sys tem Liver cell carcinoma 01/08/2023 [id number] SNOMED- CT Personal Care Team Section Imaging Narrative Notes
--- OUTSIDE RECORDS SUMMARY | 2024-09-14 11:39 | XMS_ITS ---
Author Organization [facility] Address [address] [place], [place] [id number] Care Team Providers Care Burglar Alarm Superintendent Name Role Phone Zeeshan Bernabe Unavailable Unavailable JEFFERSON FRANCISCO Unavailable [phone] REASON FOR VISIT *General care Encounters Encounter Location Date Provider Diagnosis [address] [id number] 10/01/2023 JEFFERSON FRANCISCO Plan Of Treatment No Information Progress Notes * Yony SRIVASTAVADOB: 3 (64 yo M)Acc No.[id number]:10/01/2023 Patient: Yony WILSON Provider: Rich FRANCISCO :1960 A ge:63 Y S ex:Male Date:10/01/2023 Address:[address] [place], [place] [id number] Subjective: * Chief Complaints: * 1 . *General care. * Medical History: Objective: * Vitals: Assessment: Plan: * Treatment: * Billing Information: * Visit Code: * Procedure Codes: * Electronic signature of NAM FRANCISCO DPM on 09/14/2024 at 11:38 AM CDT Sign off status: Pending * Provider: Rich FRANCISCO Date: 10/01/2023 Generated for Perla toribio/Michael/eTransmitting on: 09/14/2024 11:38 AM CDT
[2024-09-14 11:52] LABS: Hematocrit 40.0 % (40.0-54.0); Hemoglobin 12.7 g/dL (14.0-18.0); Immature Granulocyte Percent A 0.4 % (0.0-0.0); Lymphocytes Absolute Auto 1.04 K/mm3 (1.10-4.50); Mean Corpuscular HGB Conc 31.8 g/dL (32-36); Mean Corpuscular Hemoglobin 28.1 pg (27.0-31.0); Mean Corpuscular Volume 88.5 fL (78.0-102.0); Nucleated Red Blood Cells Absolute Auto 0.00 K/mm3 (0.00-0.00); Nucleated Red Blood Cells Perc 0.0 % (0-0.0); Platelet Count Result 175 K/mm3 (150-420); Red Blood Count 4.52 M/mm3 (4.70-6.10); White Blood Count 6.9 K/mm3 (4.8-10.8)
[2024-09-14 12:51] LABS: Alanine Aminotransferase 22 U/L (6-50); Albumin Level 3.9 g/dL (3.5-5.1); Alkaline Phosphatase 78 U/L (38-126); Anion Gap 7 mmol/L (4-12); Aspartate Amino Transferase 22 U/L (17-59); Bilirubin,Total 0.5 mg/dL (0.2-1.3); Blood Urea Nitrogen 29 mg/dL (9-20); Calcium 9.2 mg/dL (8.4-10.2); Carbon Dioxide 27 mmol/L (22-30); Chloride 104 mmol/L (98-107); Estimated Glomerular Filt Rate 55; Glucose 157 mg/dL (65-110); Osmolality Calculated 294 mOsm/kg (285-295); Potassium 5.5 mmol/L (3.4-5.0); Sodium 138 mmol/L (137-145); Total Protein 6.5 g/dL (6.3-8.2)
[2024-09-14 15:31] LABS: Add Urine Microscopic? NO; Appearance Urine Clear (Clear); Glucose Urine UA 3+ (Negative); Leukocyte Esterase Ur Negative (Negative); Nitrate Urine Negative (Negative); Specific Grav Ur 1.010 (1.010-1.020)
[2024-09-16 16:08] LABS: Albumin 3.4 g/dL (2.9-4.4); Alpha-1-Globulin 0.3 g/dL (0.0-0.4); Alpha-2-Globulin 0.8 g/dL (0.4-1.0); Gamma Globulin 1.1 g/dL (0.4-1.8)
[2024-09-19 15:09] LABS: Albumin, U 72.1 % (.); Alpha-1-Globulin, U 4.0 % (.); Alpha-2-Globulin, U 7.9 % (.); Beta Globulin, U 12.1 % (.); Gamma Globulin, U 3.8 % (.)
== END 2024-09-14 11:10 | disposition home or self-care (01) ==
PROVIDERS: PCP Family Medicine; Visit Provider Internal Medicine Hematology & Oncology
DX: C22.0 Liver cell carcinoma (principal)
CPT/HCPCS: 36415; 80053; 81003; 84100; 84156; 84165; 84166; 85025

== ENCOUNTER 2024-09-18 11:52 | Outpatient (CLI) | payer OTHER, SELFPAY ==
--- OUTSIDE RECORDS SUMMARY | 2024-09-18 11:57 | XMS_ITS | Patient Health Record ---
Author Organization [facility] Address [address] [place], [place] [id number] Care Team Providers Care Psychological Tests Sales Agent Name Role Phone Zeeshan Bernabe Unavailable Unavailable JEFFERSON FRANCISCO Unavailable [phone] Allergies No Known Allergies Reason For Referral [...]
--- OUTSIDE RECORDS SUMMARY | 2024-09-18 11:57 | XMS_ITS | Clinical Summary ---
Author Organization [facility] Address [address] [place] [address] Care Team Providers Care Auto Radiator Specialist Name Role Phone Zeeshan Bernabe MD Primary [...] 01/26/2018 Assessment & Plan (01/26/2018 6:46 AM MEDICARE COMPLIANCE AUDITOR): Found on outpatient MRI. Patient advised to have girlfriend bring in result of the MRI. Id has been consulted. Id had recommended vancomycin. Awaiting ID recommendations. Vancomycin has been continued. Type 2 diabetes mellitus wit h neurologic complication, with long-term current use of insulin 01/26/2018 Assessment & Plan (01/26/2018 6:45 AM MEDICARE COMPLIANCE AUDITOR): Patient is on 80 units of Lantus q.h.s., metformin and glipizide at home. Will reduce dose to [address] And [address] patient on high-dose sliding scale. Continue to monitor and adjust medications as needed. Essential hypertension 01/26/2018 Assessment & Plan (01/26/2018 6:46 AM MEDICARE COMPLIANCE AUDITOR): Slightly elevated. Home medications have been resumed with hold parameters. DC IV fluids. Continue monitor and adjust medications as needed. Microcytic anemia 01/26/2018 Assessment & Plan (01/26/2018 6:46 AM MEDICARE COMPLIANCE AUDITOR): Hemoglobin appears to be baseline. However patient never had microcytosis. Could be of chronic disease however will rule out iron deficiency. Will check an iron profile. Will also rule out occult bleeding with FOBT. PVD (peripheral vascular disease) 01/26/2018 Assessment & Plan (01/26/2018 6:45 AM MEDICARE COMPLIANCE AUDITOR): Patient has a history of PVD status [...] Comments Blood Pressure 150/76 01/28/2018 10:50 AM MEDICARE COMPLIANCE AUDITOR Pulse 78 01/28/2018 10:50 AM MEDICARE COMPLIANCE AUDITOR Temperature 36.3 C (97.3 F) 01/28/2018 9:50 AM MEDICARE COMPLIANCE AUDITOR Respiratory Rate 18 01/28/2018 10:50 AM MEDICARE COMPLIANCE AUDITOR Oxygen Saturation 97% 01/28/2018 10:50 AM MEDICARE COMPLIANCE AUDITOR Inhaled Oxygen Concentration - - Weight 105.8 kg (233 lb 4 oz) 01/28/2018 7:59 AM MEDICARE COMPLIANCE AUDITOR Height 170.2 cm (5' 7) 01/28/2018 7:59 AM MEDICARE COMPLIANCE AUDITOR Body Mass Index 36.53 01/28/2018 7:59 AM MEDICARE COMPLIANCE AUDITOR Plan of Treatment Health Maintenance Due Date [...] season) 2023 03/19/2021, 10/16/2020, 09/24/2020 Influenza Vaccine (#1) 2024 , 12/28/2017, 12/07/2017, Additional history exists Procedures Procedure Name Priority Date/Time Associated Diagnosis Comments EGFR Routine 01/27/2018 3:26 AM MEDICARE COMPLIANCE AUDITOR from Last 3 Months or Most Recently Relevant to Health Maintenance Results * eGFR (01/27/2018 3:26 AM MEDICARE COMPLIANCE AUDITOR) eGFR >60 mL/min/1.7 3 m2 ISABEL JOHNSON ([facility]) Comment: Interpretive Data Reference Interval Normal >/= 90 mL/min/1.73m2 Mildly decreased* 60 - 89 mL/min/1.73m2 Mildly to moderately decreased 45 - 59 mL/min/1.73m2 Moderately to severely decreased 30 - 44 mL/min/1.73m2 Severely decreased 15 - 29 mL/min/1.73m2 Kidney Failure < 15 mL/min/1.73m2 *Relative to young adult level If -Ethiopian multiply value by 1.16. Estimated glomerular filtration [...] 2015. Blood specimen (specimen) 01/27/2018 3:26 AM MEDICARE COMPLIANCE AUDITOR 01/27/2018 4:27 AM MEDICARE COMPLIANCE AUDITOR Narrative ISABEL JOHNSON ([facility]FA[facility]) - 01/27/2018 4:54 AM MEDICARE COMPLIANCE AUDITOR Nicci Edwards MD LAB BLOOD ORDERABLES Final Resul t [facility] Department [place] [address] from Last 3 Months or Most Recently Relevant to Health Maintenance Insurance [facility] MEDICAID [facility] [employer] Advance Directives For more information, please contact: [phone] * Full Code (Latest Code Status on File) Date Activated Date Inactivated Comments 01/25/2018 10:06 PM 01/28/2018 5:50 PM Care Teams Auto Radiator Specialist Relationship Specialty Start Date End Date Zeeshan Bernabe MD PCP - General 10/12/17
--- OUTSIDE RECORDS SUMMARY | 2024-09-18 11:57 | XMS_ITS | Referral Summary ---
Author Organization [facility] Address [address] [place] [address] Care Team Providers Care Bench Assembly Inspector Name Role Phone Zeeshan Bernabe MD Primary Care Provider [phone] Allergies No known active allergies Medications NORMAL [...] 01/26/2018 Assessment & Plan (01/26/2018 6:46 AM VEGETABLE II FARMWORKER): Found on outpatient MRI. Patient advised to have girlfriend bring in result of the MRI. Id has been consulted. Id had recommended vancomycin. Awaiting ID recommendations. Vancomycin has been continued. Type 2 diabetes mellitus wit h neurologic complication, with long-term current use of insulin 01/26/2018 Assessment & Plan (01/26/2018 6:45 AM VEGETABLE II FARMWORKER): Patient is on 80 units of Lantus q.h.s., metformin and glipizide at home. Will reduce dose to [address] patient on high-dose sliding scale. Continue to monitor and adjust medications as needed. Essential hypertension 01/26/2018 Assessment & Plan (01/26/2018 6:46 AM VEGETABLE II FARMWORKER): Slightly elevated. Home medications have been resumed with hold parameters. DC IV fluids. Continue monitor and adjust medications as needed. Microcytic anemia 01/26/2018 Assessment & Plan (01/26/2018 6:46 AM VEGETABLE II FARMWORKER): Hemoglobin appears to be baseline. However patient never had microcytosis. Could be of chronic disease however will rule out iron deficiency. Will check an iron profile. Will also rule out occult bleeding with FOBT. PVD (peripheral vascular disease) 01/26/2018 Assessment & Plan (01/26/2018 6:45 AM VEGETABLE II FARMWORKER): Patient has a history of PVD status [...] Comments Blood Pressure 150/76 01/28/2018 10:50 AM VEGETABLE II FARMWORKER Pulse 78 01/28/2018 10:50 AM VEGETABLE II FARMWORKER Temperature 36.3 C (97.3 F) 01/28/2018 9:50 AM VEGETABLE II FARMWORKER Respiratory Rate 18 01/28/2018 10:50 AM VEGETABLE II FARMWORKER Oxygen Saturation 97% 01/28/2018 10:50 AM VEGETABLE II FARMWORKER Inhaled Oxygen Concentration - - Weight 105.8 kg (233 lb 4 oz) 01/28/2018 7:59 AM VEGETABLE II FARMWORKER Height 170.2 cm (5' 7) 01/28/2018 7:59 AM VEGETABLE II FARMWORKER Body Mass Index 36.53 01/28/2018 7:59 AM VEGETABLE II FARMWORKER Plan of Treatment Not on file Procedures Procedure Name Priority Date/Time Associated Diagnosis Comments EGFR Routine 01/27/2018 3:26 AM VEGETABLE II FARMWORKER from Last 3 Months or Most Recently Relevant to Health Maintenance Results * eGFR (01/27/2018 3:26 AM VEGETABLE II FARMWORKER) eGFR >60 mL/min/1.7 3 m2 ISABEL JOHNSON (RAFAEL) Comment: Interpretive Data Reference Interval Normal >/= 90 mL/min/1.73m2 Mildly decreased* 60 - 89 mL/min/1.73m2 Mildly to moderately decreased 45 - 59 mL/min/1.73m2 Moderately to severely decreased 30 - 44 mL/min/1.73m2 Severely decreased 15 - 29 mL/min/1.73m2 Kidney Failure < 15 mL/min/1.73m2 *Relative to young adult level If -Bermudian multiply value by 1.16. Estimated glomerular filtration [...] 2015. Blood specimen (specimen) 01/27/2018 3:26 AM VEGETABLE II FARMWORKER 01/27/2018 4:27 AM VEGETABLE II FARMWORKER Narrative ISABEL JOHNSON (RAFAEL) - 01/27/2018 4:54 AM VEGETABLE II FARMWORKER us Nicci Edwards MD LAB BLOOD ORDERABLES Final Resul t ISABEL JOHNSON (KEENE) [address] [facility] [place] [address] from Last 3 Months or Most Recently Relevant to Health Maintenance Insurance [facility] MEDICAID [facility] IDPA Advance Directives For more information, please contact: [phone] * Full Code (Latest Code Status on File) Date Activated Date Inactivated Comments 01/25/2018 10:06 PM 01/28/2018 5:50 PM Care Teams Bench Assembly Inspector Relationship Specialty Start Date End Date Zeeshan Bernabe MD PCP - General 10/12/17
--- OUTSIDE RECORDS SUMMARY | 2024-09-18 11:57 | XMS_ITS | Encounter Summary ---
Author Organization [facility] Address [facility] [place] [address] Care Team Providers Care Meatcutter Name Role Phone Zeeshan Bernabe MD Primary Care Provider Encounter Details Date Type Department Care Team (Late st Contact Info) Description 07/09/2023 Abstract [facility] [address] [place] [address] [place] [address] [place] [address] Social History Tobacco Use Types Packs/Day Years Used Date Smoking Tobacco: Former Cigarettes Q uit: 2013 Smokeless Tobacco: Current Alcohol Use Standard Drinks/Week Comments No 0 (1 standard drink = 0.6 oz pur e alcohol) none in 6 years AUDIT-C Answer Date Recorded Frequency of Alcohol Consumption Never 09/17/2018 Average Number of Drinks Not on file 019 Frequency of Binge Drinking Not on file 08/24 Sex and Gender Information Value Date Recorded Sex Assigned at Not on file Legal Sex Male 6:00 PM WOOD CUTTER Gender Identity Not on file Sexual Orientation Not on file documented as of this encounter Plan of Treatment Not on file documented as of this encounter Visit Diagnoses Not on filedocumented in this encounter Additional Health Concerns Infection Onset Date Last Indicated Resolved Time 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
--- OUTSIDE RECORDS SUMMARY | 2024-09-18 11:57 | XMS_ITS | Clinical Summary ---
Author Organization [facility] Address [address] [place] [address] Care Team Providers Care Mine Manager Name Role Phone Zeeshan Bernabe MD Primary Care Provider [phone] Allergies No known active allergies Medications aspirin 81 MG chewable tablet Chew 1 tablet (81 mg total) by mouth nightly at bedtime. 07/04/2017 Active brimonidine 0.15 % ophthalmic solution Apply 1 drop to eye 2 (two) times daily. Active folic acid 1 MG tablet Take 1 tablet (1 mg total) by mouth daily. Active glipiZIDE 10 MG tablet Take 1 tablet (10 mg total) by mouth 2 (two) times daily. Active metFORMIN 1000 MG tablet Take 1 tablet (1,000 mg total) by mouth 2 (two) times daily. Active metoprolol tartrate 50 MG tablet Take 1 tablet (50 mg total) by mouth every 12 (twelve) hours. 07/07/2017 Active insulin glargine 100 UNIT/ML injection (VIAL) Inject 100 Units into the skin nightly at bedtime. Active Glucose Blood test strip 08/07/[address] 1 drop into both eyes nightly at bedtime. Active Timolol Maleate 0.5 % (DAILY) Solution Apply 1 drop to eye 2 (two) times daily. Active thiamine 100 MG Tab Take 1 tablet (100 mg total) by mouth daily. Active ONETOUCH DELICA LANCETS 33G Misc 08/06/2017 Ac tive ezetimibe 10 MG tablet Take 60 tablets (600 mg total) by mouth nightly at bedtime. Active ferrous sulfate EC 325 (65 Fe) MG tablet Take 1 tablet by mouth 2 (two) times daily with meals. Active insulin lispro, 1 Unit Dial, 100 UNIT/ML injection (PEN) Inject 16 Units into the skin every evening. Before supper Active atorvastatin 80 MG tablet 1 tablet (80 mg total) nightly at bedtime. 05/24/2021 Active valsartan (DIOVAN) 320 MG tablet Take 1 tablet (320 mg total) by mouth daily. 07/08/2022 Active amLODIPine (NORVASC) 10 MG tablet Take 1 tablet (10 mg total) by mouth daily. Active dapagliflozin (FARXIGA) 10 MG tablet Take 1 tablet (10 mg total) by mouth daily. Active doxazosin (CARDURA) 2 MG tablet Take 1 tablet (2 mg total) by mouth daily. Active tamsulosin (FLOMAX) 0.4 MG Cap TAKE ONE CAPSULE BY MOUTH NIGHTLY 90 capsule 04/22/2024 Active isosorbide mononitrate ER (IMDUR) 30 MG 24 hr tablet TAKE ONE TABLET BY MOUTH BEDTIME 90 tablet 1 04/25/2024 Active Active Problems Problem Noted Date Diagnosed Date Hematuria, microscopic 03/10/2019 Chronic alcohol use 03/02/2019 Microcytic anemia 01/26/2018 Overview (03/02/2019): Last Assessment & Plan: Hemoglobin appears to be baseline. However patient never had microcytosis. Could be of chronic disease however will rule out iron deficiency. Will check an iron profile. Will also rule out occult bleeding with FOBT. PVD (peripheral vascular disease) 01/26/2018 Overview (03/02/2019): Last Assessment & Plan: Patient has a history of PVD status post stents. Continue aspirin and statin. H/O amputation of lesser toe, left (HHS/HCC) Acute osteomyelitis of left foot ([facility]/HCC HHS/HC C) 06/25/2017 Overview (03/02/2019): Last Assessment & Plan: Found on outpatient MRI. Patient advised to have girlfriend bring in result of the MRI. Id has been consulted. Id had recommended vancomycin. Awaiting ID recommendations. Vancomycin has been continued. Essential hypertension 06/25/2017 Overview (03/02/2019): Last Assessment & Plan: Slightly elevated. Home medications have been resumed with hold parameters. DC IV fluids. Continue monitor and adjust medications as needed. Type 2 diabetes mellitus wit h foot ulcer, with long-term current use of insulin ([facility]) 06/22/2017 Overview (03/02/2019): Last Assessment & Plan: Patient is on 80 units of Lantus q.h.s., metformin and glipizide at home. Will reduce dose to [address] patient on high-dose sliding scale. Continue to monitor and adjust medications as needed. Diabetic foot infection ([facility]) 2017 Immunizations Immunization Administration Dates Next Due PFIZER COVID-19 (ORIGINAL FO RMULATION, PURPLE CAP) mRNA, LNP-S, PF, 30 MCG/0.3 ML DOSE 03/19/2021,10/16/2020,09/24/2020 Family History Medical History Relation Comments Cancer Father Diabetes Maternal Grandmother Relation Status Comments Father Maternal Grandmother Mother Alive Social History Tobacco Use Types Packs/Day Years Used Date Smoking Tobacco: Former Cigarettes Q uit: 2012 Smokeless Tobacco: Current Tobacco Cessation:Ready to Q uit: Not Asked; Counseling Given: Not Answered Alcohol Use Standard Drinks/Week Comments No 0 [...] on file Legal Sex Male 6:00 PM WORKERS COMPENSATION DEFENSE ATTORNEY Gender Identity Not on file Sexual Orientation Not on file Last Filed Vital Signs Vital Sign Reading Time Taken Comments Blood Pressure 117/53 12/28/2023 10:08 AM WORKERS COMPENSATION DEFENSE ATTORNEY Pulse 64 12/28/2023 10:08 AM WORKERS COMPENSATION DEFENSE ATTORNEY Temperature 36.8 C (98.3 F) 02/17/2023 8:10 AM WORKERS COMPENSATION DEFENSE ATTORNEY Respiratory Rate 20 02/17/2023 8:10 AM WORKERS COMPENSATION DEFENSE ATTORNEY Oxygen Saturation 94% 02/17/2023 8:10 AM WORKERS COMPENSATION DEFENSE ATTORNEY Inhaled Oxygen Concentration - - Weight 113.8 kg (250 lb 14.1 oz) 2023 10:08 AM WORKERS COMPENSATION DEFENSE ATTORNEY Height 170.2 cm (5' 7) 12/28/2023 10:0 8 AM WORKERS COMPENSATION DEFENSE ATTORNEY Body Mass Index 39.29 12/28/2023 10:08 AM WORKERS COMPENSATION DEFENSE ATTORNEY Plan of Treatment Health Maintenance Due Date Last Done Comments Colorectal Cancer Screening Colonoscopy (10 Years) 1960 Kidney Health Evaluation 1960 Hemoglobin A1C 1962 Lipid Panel 1962 Annual Physical 1965 Diabetes: Retinopathy Eye Exam 1980 Hepatitis C 1980 DTaP, Tdap and Td Vaccines ( 1 - Tdap) 1981 Pneumococcal Vaccine: 50+ Years (1 of 2 - PCV) 1981 Zoster Vaccines (1 of 2) 2012 RSV Immunization or 60+ Years (1 - Risk 60-74 years 1-dose series) 2022 COVID-19 Vaccine ( - 2023-2 5 season) 2023 03/19/2021, 10/16/2020, 09/24/2020 Colorectal Cancer Screening FIT/FOBT (1 Year) Discontinued 03/02/2019, 03/01/2019 Meningococcal B Vaccine Aged Out No l onger eligible based on patient's age to complete this topic Meningococcal Vaccine Aged Out No anayeli elmira eligible based on patient's age to complete this topic RSV Immunizations Under 20 Months Aged Out No longer eligible based on patient's age to complete this topic Procedures Procedure Name Priority Date/Time Associated Diagnosis Comments OCCULT BLOOD, FECES Routine 03/02/2019 1 0:30 AM WORKERS COMPENSATION DEFENSE ATTORNEY Normocytic anemia from Last 3 Months or Most Recently Relevant to Health Maintenance Results * (ABNORMAL) OCCULT BLOOD, FECES (03/02/2019 10:30 AM WORKERS COMPENSATION DEFENSE ATTORNEY) OCCULT BLOOD FECAL POSITIVE(A ) NEGATIVE 03/02/2019 3:27 PM WORKERS COMPENSATION DEFENSE ATTORNEY [facility] Comment:1+ STOOL SPECIMEN / Unknown 03/02/2019 10:30 AM WORKERS COMPENSATION DEFENSE ATTORNEY us Kiki Tavarez MD BODY FLUIDS AND STOOLS ORDERABLE S Final Result [facility] [address] [place] [address], from Last 3 Months or Most Recently Relevant to Health Maintenance Additional Health Concerns Infection Onset Date Last Indicated MRSA 01/16/2017 01/16/2017 Insurance [facility] Advance Directives Documents on File Type Date Recorded Patient Shark Biologist Expl anation Advance Directives and Living Will 04/08/2019 12:00 AM ADVANCED DIRECTIVES * Full Code (Latest Code Status on File) Date Activated Date Inactivated Comments 05/18/2018 9:06 AM 05/18/2018 3:27 PM Care Teams Mine Manager Relationship Specialty Start Date End Date Zeeshan Bernabe MD [address] [place] [phone] PCP - General FAMILY PRACTICE 05/18/18
--- OUTSIDE RECORDS SUMMARY | 2024-09-18 11:58 | XMS_ITS | Clinical Summary ---
Author Organization [facility] Address [address] [place] [address] Phone Care Team Providers Care Plexiglas Former Name Role Phone Provider, None Primary Care [...] this topic Medical Devices Implanted Type Area Customer Logistics Manager Device Identifier Shelf Expiration Date Model / Serial / Lot Stent Vasc 60mm 5mm 6fr Supera Soila 120cm - [id number] Implanted:Qty: 1 on 06/26/2017 by Daniel Clark MD at [facility] IMPLANT Left: Leg [employer] 11/22/2018 [id number]-[id number] 120-P6 / [id number] 120-P6 / [id number] Stent Vasc 40mm 6mm 6fr Supera Soila 120cm - [id number] Implanted:Qty: 1 on 06/26/2017 by Daniel Clark MD at [facility] IMPLANT Left: Leg [employer] 09/22/2018 S-[id number] 120-P6 / [id number] 120-P6 / [id number] Device Clsr 70cm 6fr Angio-Seal Vip .035in Vasc Collagen Valuelink Gw Insertion Shth J Photo Graphics Librarian - [id number] Implanted:Qty: 1 on 06/26/2017 by Daniel Clark MD at [facility] IMPLANT Right: Groin [employer] 02/22/2018 [id number] / / [id number] Procedures Procedure Name Priority Date/Time Associated Diagnosis Comments CMP (COMPREHENSIVE METABOLIC PANEL) STAT 06/22/2017 7:21 PM CDT HEMOGLOBIN A1C W/ ESTIMATED GLUCOSE STAT 06/22/2017 7:21 PM CDT from Last 3 Months or Most Recently Relevant to Health Maintenance Results * (ABNORMAL) Hemoglobin A1C (if indicated) (06/22/2017 7:21 PM CDT) [facility] HGB-A1C 9.9(H) 4.4 - 6.4 % 06/22/2017 11:17 PM CDT [facility] Est Average Glucose 237.4 mg/dL 06/22/2017 11:17 PM CDT [facility] Blood specimen (specimen) Venipuncture / Unknown 06/22/2017 7:21 PM CDT 06/22/2017 11:02 PM CDT Narrative [facility] - 06/22/2017 11:17 PM CDT HEMOGLOBIN A1C: DIABETIC PATIENTS: WELL-CONTROLLED: 6.2 - 7.0 INTERMEDIATE WELL-CONTROLLED: 7.0 - 9.0 POORLY-CONTROLLED: >9.0 us Lucero Tanner MD CHEMISTRY ORDERABLES Final Result [facility] [address] [place] [address] * (ABNORMAL) CMP (Comprehensive Metabolic Panel) (06/22/2017 7:21 PM CDT) [facility] SODIUM 129(L) 131 - 143 mmol/L 06/22/2017 7:51 PM CDT [facility] POTASSIUM 4.3 3.5 - 5.1 mmol/L 06/22/2017 7:51 PM CDT [facility] CHLORIDE 90(L) 100 - 110 mmol/L 06/22/2017 7:51 PM CDT [facility] CO2, VENOUS 28 22 - 32 mmol/L 06/22/2017 7:51 PM CDT [facility] ANION GAP 15.3 8.0 - 20.0 mmol/L 06/22/2017 7:51 PM CDT [facility] GLUCOSE 279(H) 70 - 105 mg/dL 06/22/2017 7:51 PM CDT [facility] BUN 18 10 - 31 mg/dL 06/22/2017 7:51 PM T [facility] CREATININE, BLOOD 0.87 0.60 - 1.30 mg/dL 06/22/2017 7:51 PM T [facility] BUN/CREATININE RATIO 21(H) 12 - 20 ratio 06/22/2017 7:51 PM T [facility] TOTAL PROTEIN 6.9 6.0 - 8.3 g/dL 06/22/2017 7:51 PM T [facility] ALBUMIN 3.4(L) 3.5 - 5.2 g/dL 06/22/2017 7:51 PM [facility] A/G RATIO 1.0 1.0 - 2.0 06/22/2017 7:51 PM T [facility] CALCIUM 9.1 8.9 - 10.3 mg/dL 06/22/2017 7:51 PM T [facility] T BILI 0.2(L) 0.3 - 1.2 mg/dL 06/22/2017 7:51 PM T [facility] SGOT (AST) 13 1 - 40 U/L 06/22/2017 7:51 PM [facility] SGPT (ALT) 17 1 - 40 U/L 06/22/2017 7:51 PM [facility] ALKALINE PHOSPHATASE 67 40 - 130 U/L 06/22/2017 7:51 PM T [facility] GFR, EST. NONAFRICAN >60 >=60 06/22/2017 7:51 PM T [facility] GFR, EST. >60 >=60 06/22/2017 7:51 PM [facility] Comment: Creatinine Clearance is the preferred criteria for selecting drug dose adjustments in renally impaired patients. The GFR is provided as additional pertinent clinical information. GFR is reported in mL/min/1.73 sq m. Blood specimen (specimen) Venipuncture / Unknown 06/22/2017 7:21 PM CDT 06/22/2017 7:27 PM CDT us Pablo Huertas MD CHEMISTRY ORDERABLES Final Result [facility] [address] [place] [address] from Last 3 Months or Most Recently Relevant to Health Maintenance Advance Directives * Full Code (Latest Code Status on File) Date Activated Date Inactivated Comments 06/23/2017 1:12 AM 07/04/2017 10:09 PM CPR-Full German atment: FULL ARREST: Attempt Resuscitation/CPR wit intubation and mechanical ventilation. PRE-ARREST: Use entire range of life support measures to stabilize the patient. Care Teams Plexiglas Former Relationship Specialty Start Date End Date Provider, None ATA PCP - General 06/22/17
--- OUTSIDE RECORDS SUMMARY | 2024-09-18 11:58 | XMS_ITS | Encounter Summary ---
Author Organization [facility] Address [address] [place] [address] Care Team Providers Care Integrated Marketing Intern Name Role Phone Zeeshan Bernabe MD Primary Care Provider Encounter Details Date Type Department Care Team (Late st Contact Info) Description 05/09/2017 Abstract [facility] [address] [place] [address] , Generic ConversionMD Social History Tobacco Use Types Packs/Day Years Used Date Smoking Tobacco: Never Assessed Sex and Gender Information Value Date Recorded Sex Assigned at Not on file Legal Sex Male 6:00 PM TUBE BUFFER Gender Identity Not on file Sexual Orientation Not on file documented as of this encounter Plan of Treatment Not on file documented as of this encounter Visit Diagnoses Not on filedocumented in this encounter Additional Health Concerns Infection Onset Date Last Indicated Resolved Time MRSA 01/16/2017 01/16/2017 COVID-19 Rule Out 02/16/2023 02/16/2023 02/16/2023 10:24 PM TUBE BUFFER documented as of this encounter Care Teams Integrated Marketing Intern Relationship Specialty Start Date End Date Zeeshan Bernabe MD [address] [place] [phone] PCP - General FAMILY PRACTICE 05/18/18 documented as of this encounter
--- OUTSIDE RECORDS SUMMARY | 2024-09-18 11:58 | XMS_ITS ---
Author Organization [facility] Address [address] [place], [place] [id number] Care Team Providers Care Equip Maint Eng Name Role Phone Zeeshan Bernabe Unavailable Unavailable JEFFERSON FRANCISCO Unavailable [phone] REASON FOR VISIT *General care Encounters Encounter Location Date Provider Diagnosis [address] [id number] 10/01/2023 JEFFERSON FRANCISCO Plan Of Treatment No Information Progress Notes * Yony SRIVASTAVADOB: 3 (64 yo M)Acc No.[id number]:10/01/2023 Patient: Yony WILSON Provider: Rich FRANCISCO :1960 A ge:63 Y S ex:Male Date:10/01/2023 Address:[address] [place], [place] [id number] Subjective: * Chief Complaints: * 1 . *General care. * Medical History: Objective: * Vitals: Assessment: Plan: * Treatment: * Billing Information: * Visit Code: * Procedure Codes: * Electronic signature of NAM FRANCISCO DPM on 09/18/2024 at 11:57 AM CDT Sign off status: Pending * Provider: Rich FRANCISCO Date: 10/01/2023 Generated for Perla toribio/Michael/eTransmitting on: 09/18/2024 11:57 AM CDT
--- OUTSIDE RECORDS SUMMARY | 2024-09-18 11:58 | XMS_ITS | Encounter Summary ---
Author Organization [facility] Address [facility] [place] [address] Care Team Providers Care Geotechnical Laboratory Technician Name Role Phone Zeeshan Bernabe MD Primary Care Provider Encounter Details Date Type Department Care Team (Late st Contact Info) Description 10/10/2020 Abstract [facility] [address] [place] [id number] Social History Tobacco Use Types Packs/Day Years [...] on file Legal Sex Male 6:00 PM RECORDIST CHIEF Gender Identity Not on file Sexual Orientation Not on file documented as of this encounter Plan of Treatment Not on file documented as of this encounter Visit Diagnoses Not on filedocumented in this encounter Additional Health Concerns Infection Onset Date Last Indicated Resolved Time MRSA 01/16/2017 01/16/2017 COVID-19 Rule Out 02/16/2023 02/16/2023 02/16/2023 10:24 PM RECORDIST CHIEF documented as of this encounter Care Teams Geotechnical Laboratory Technician Relationship Specialty Start Date End Date Zeeshan Bernabe MD [address] [place] [phone] PCP - General FAMILY PRACTICE 05/18/18 documented as of this encounter
--- OUTSIDE RECORDS SUMMARY | 2024-09-18 11:58 | XMS_ITS | Encounter Summary ---
Author Organization [facility] Address [facility] [place] [address] Care Team Providers Care Exploitation Analyst Name Role Phone Zeeshan Bernabe MD Primary Care Provider Encounter Details Date Type Department Care Team (Late st Contact Info) Description 08/24/2020 Abstract [facility] [address] [place] [id number] Social History Tobacco Use Types Packs/Day Years [...] on file Legal Sex Male 6:00 PM MOBILE NURSE Gender Identity Not on file Sexual Orientation Not on file documented as of this encounter Plan of Treatment Not on file documented as of this encounter Visit Diagnoses Not on filedocumented in this encounter Additional Health Concerns Infection Onset Date Last Indicated Resolved Time MRSA 01/16/2017 01/16/2017 COVID-19 Rule Out 02/16/2023 02/16/2023 02/16/2023 10:24 PM MOBILE NURSE documented as of this encounter Care Teams Exploitation Analyst Relationship Specialty Start Date End Date Zeeshan Bernabe MD [address] [place] [phone] PCP - General FAMILY PRACTICE 05/18/18 documented as of this encounter
[2024-09-18 12:16] LABS: Add Urine Microscopic? NO; Appearance Urine Clear (Clear); Glucose Urine UA 3+ (Negative); Leukocyte Esterase Ur Negative (Negative); Nitrate Urine Negative (Negative); Specific Grav Ur <= 1.005 (1.010-1.020)
[2024-09-18 12:36] LABS: Anion Gap 6 mmol/L (4-12); Blood Urea Nitrogen 28 mg/dL (9-20); Calcium 8.4 mg/dL (8.4-10.2); Carbon Dioxide 27 mmol/L (22-30); Chloride 103 mmol/L (98-107); Estimated Glomerular Filt Rate > 60; Glucose 258 mg/dL (65-110); Osmolality Calculated 296 mOsm/kg (285-295); Potassium 4.5 mmol/L (3.4-5.0); Sodium 136 mmol/L (137-145)
[2024-09-18 12:54] LABS: Albumin Level 3.6 g/dL (3.5-5.1); Anion Gap 7 mmol/L (4-12); Blood Urea Nitrogen 29 mg/dL (9-20); Calcium 8.4 mg/dL (8.4-10.2); Carbon Dioxide 25 mmol/L (22-30); Chloride 104 mmol/L (98-107); Estimated Glomerular Filt Rate > 60; Glucose 260 mg/dL (65-110); Osmolality Calculated 296 mOsm/kg (285-295); Potassium 4.5 mmol/L (3.4-5.0); Sodium 136 mmol/L (137-145)
[2024-09-20 14:08] LABS: Albumin 3.2 g/dL (2.9-4.4); Alpha-1-Globulin 0.2 g/dL (0.0-0.4); Alpha-2-Globulin 0.8 g/dL (0.4-1.0); Gamma Globulin 1.0 g/dL (0.4-1.8)
[2024-09-21 15:09] LABS: Albumin, U 82.8 % (.); Alpha-1-Globulin, U 1.8 % (.); Alpha-2-Globulin, U 4.8 % (.); Beta Globulin, U 5.5 % (.); Gamma Globulin, U 5.1 % (.)
== END 2024-09-18 11:53 | disposition home or self-care (01) ==
LOC: CHSLAB 11:55
PROVIDERS: PCP Family Medicine; Visit Provider Internal Medicine
DX: I10 Essential (primary) hypertension (principal); E87.5 Hyperkalemia
CPT/HCPCS: 36415; 80048; 80069; 81003; 84156; 84165; 84166